=== PATIENT | male | born 1980 | race Hispanic/Latino ===

== ENCOUNTER 2016-11-25 13:09 | Inpatient (IN) | payer MEDICAID ==
[2016-11-25] MEDS ORDERED: MORPHINE IV ONE ×2 (13:48→14:42)
--- NOTE | 2016-11-25 14:06 | Emergency Department Report ---
ED Upper Extremity Inj HPI - General Chief Complaint: Shoulder Injury Stated Complaint: POSS SHOULDER RIGHT Time Seen by Provider: 11/25/16 13:26 Source: patient Mode of arrival: Ambulatory Limitations: No Limitations - History of Present Illness Initial Comments: 36-year-old blind male who fell on his right shoulder last night. Went to work today and got an x-ray at work that showed a right shoulder dislocation. Patient is a having significant pain with any movement. Complaint: Injury to:: right -: Sudden Other Extremity Injury: Shoulder: Left Other Injuries: none Handedness: right Place: other (friend's house) Improves With: immobilization Worsens With: movement of extremity Context: fall Associated Symptoms: denies: weakness, numbness - Related Data Home Medications Medication Instructions Recorded Confirmed Last Taken No Known Home Medications [No 11/22/13 11/22/13 Unknown Reported Home Medications] Allergies Allergy/AdvReac Type Severity Reaction Status Date / Time No Known Allergies Allergy Unverified 11/22/13 20:17 ED Review of Systems ROS: Stated complaint: POSS SHOULDER RIGHT Other details as noted in HPI Comment: All other systems reviewed and negative Eyes: denies: eye pain, eye discharge Cardiovascular: denies: chest pain, palpitations Endocrine: denies: excessive sweating Gastrointestinal: denies: abdominal pain, nausea Musculoskeletal: denies: back pain Neurological: denies: headache, weakness ED Past Medical Hx - Past Medical History Previous Medical History?: Yes Hx Congestive Heart Failure: No Hx Diabetes: No Hx Kidney Stones: Yes Hx Psychiatric Treatment: Yes (Depression, anxiety) Hx Asthma: No Hx COPD: No Hx HIV: No Additional medical history: Totally Blind. - Surgical History Past Surgical History?: Yes Additional Surgical History: Left shoulder surgery. Tonsilectomy. - Family History Family history: no significant - Social History Smoking Status: Never Smoker Substance Use Type: None - Medications Home Medications: Home Medications Medication Instructions Recorded Confirmed Last Taken Type No Known Home Medications [No 11/22/13 11/22/13 Unknown History Reported Home Medications] ED Physical Exam - General Limitations: No Limitations General appearance: alert, in no apparent distress - Head Head exam: Present: atraumatic, normocephalic - Neck Neck exam: Absent: tenderness, lymphadenopathy - Cardiovascular Cardiovascular Exam: Present: regular rate, normal rhythm, normal heart sounds - GI/Abdominal GI/Abdominal exam: Present: soft - Expanded Upper Extremity Exam Right Shoulder Exam: Present: tenderness, deformity, dislocation. Absent: swelling, abrasion, laceration Neuro motor exam: Present: wrist extension intact, thumb opposition intact, thumb IP flexion intact, thumb adduction intact, fingers 2-5 abduction intact - Neurological Exam Neurological exam: Present: alert, oriented X3 - Psychiatric Psychiatric exam: Present: normal affect ED Course Vital Signs 11/25/16 13:18 Temperature 97.7 F Pulse Rate 97 H Respiratory 16 Rate Blood Pressure 125/83 O2 Sat by Pulse 100 Oximetry ED Medical Decision Making - Medical Decision Making Patient with direct fall onto right shoulder with fracture dislocation of the right shoulder. Discussed case with Dr. Banks orthopedics and recommend CT shoulder with admission for operative repair tomorrow. Plan admit patient to hospitalist service. Patient placed in sling Portions of this chart were dictated with dictation software. There may be dictation errors contained within this note. Critical care attestation.: If time is entered above; I have spent that time in minutes in the direct care of this critically ill patient, excluding procedure time. ED Disposition Clinical Impression: Shoulder fracture, right, Shoulder dislocation Disposition: OP ADMIT IP TO THIS HOSP Is pt being admited?: Yes Condition: Stable
--- NOTE | 2016-11-25 14:17 | XRay Report ---
Right shoulder: Deformity, pain. There is a subcapital fracture with anteromedial and inferior displacement of the head. It is lateral fragmentation of the tuberosity. The scapula appears intact. Impression: Displaced humerus fracture.
--- NOTE | 2016-11-25 15:09 | Admit Criteria Form ---
Admission Criteria Documentation: MUSCULOSKELETAL DISEASE GRG Clinical Indications for Admission to Inpatient Care (Place 'X' for any and all applicable criteria): Hospital admission is needed for appropriate care of the patient because of 1 or more of the following: [X]I. Fracture, dislocation, or other musculoskeletal injury requiring inpatient care(medical) as indicated by 1 or more of the following(4)(5)(6)(7) [ ]a) Vertebral fracture requiring observation for instability or neurologic compromise (8) [ ]b) Compartment syndrome (proven or cannot be ruled out during observation level of care) (9) [ ]c) Limb-threatening injury [ ]d) Major injury requiring inpatient stabilization such as traction initiation or external fixation before internal fixation or closure of complex or open fracture [X]e) Major injury requiring inpatient treatment after emergency or observation level care (as appropriate) [ ]f) Severe pain requiring acute inpatient management [ ]g) Injury with suspicion of abuse or neglect (eg., child, dependent elderly) [ ]II. Newly diagnosed or suspected bone, joint, or orthopedic device infection (e.g., osteomyelitis, septic arthritis) needing 1 or more of the following(1)(2)(3) [ ]a) IV antibiotics that cannot be initiated in other than inpatient setting (e.g., patient too unstable or home infusion not available) [ ]b) Device removal or replacement [ ]c) Bone or soft tissue debridement [ ]d) Joint drainage (drain placement or repetitive aspirations) [ ]III. Severe rheumatologic disease (e.g., systemic lupus erythematosus, rheumatoid arthritis) with complications or comorbidities (Also use Optimal Recovery Care Criteria or General Recovery Criteria as appropriate on the basis of predominant condition), including 1 or more of the following( 10)(11)(12)(13) [ ]a) Severe infection (e.g., [employer] infection, sepsis) (14) [ ]b) Respiratory complications, including 1 or more of the following : [ ]i) Pleural effusion with respiratory compromise [ ]ii) Pulmonary hypertension with congestive failure [ ]iii) Respiratory failure [ ]iv) Pulmonary hemorrhage (15) [ ]c) Hematologic disease, including 1 or more of the following: [ ]i) Coagulopathy with bleeding [ ]ii) Thrombosis with hypercoagulable state [ ]iii) Thrombotic thrombocytopenic purpura [ ]d) Cerebritis with seizures, psychosis, or other severe abnormalities [ ]e) Vertebral destruction with monitoring needed for cervical myelopathy& possible respiratory compromise [ ]f) Exacerbation that requires inpatient treatment (e.g., intravenous immunosuppression) (16) [ ]g) Acute renal failure [ ]h) Cerebritis with seizures, psychosis, Altered mental status, or other neurologic abnormalities [ ]i) Pericardial effusion with tamponade [ ]j) Vertebral destruction, with monitoring needed for cervical myelopathy and possible respiratory compromise [ ]IV. Severe vasculitis with complications or comorbidities (Also use Optimal Recovery Care Criteria General Recovery Criteria as appropriate on the basis of predominant condition), including 1 or more of the following(11)(12)(17)(18)(19)(20) [ ]a) Exacerbation that requires inpatient treatment (e.g., intravenous immunosuppression) (19)(21) [ ]b) Pulmonary hemorrhage (15) [ ]c) [employer] vasculitis with seizures, psychosis, Altered mental status that is severe or persistent, or other severe abnormalities (22) [ ]d) Cerebral infarction [ ]e) Gastrointestinal ischemia [ ]f) Gangrene or threatened amputation [ ]g) Renal failure (16) [ ]h) Other significant complications of vasculitis ( eg., tissue or organ ischemia, organ dysfunction ) [ ]V. Severe myopathy as indicated by 1 or more of the following (28)(29) [ ]a) New onset of airway compromise or inability to swallow [ ]b) Respiratory deterioration with observation needed for impending respiratory failure [ ]c) Exacerbation that requires inpatient treatment (e.g., intravenous immunosuppression) [ ]. Severe crystal gout (arthropathy) indicated by 1 or more of the following (23)(24) [ ]a) Severe pain requiring acute inpatient management [ ]b) Exacerbation that requires inpatient treatment (e.g., intravenous treatment) [ ]VII.Rhabdomyolysis and 1 or more of the following (25)(26)(27) [ ]a) Acute renal failure [ ]b) Need for intravenous hydration after emergency or observation level care (as appropriate) [ ]c) Inability to maintain oral hydration [ ]d) Change in mental status [ ]e) Electrolyte abnormality that remains after emergency or observation level care (as appropriate) [ ]VIII Post amputation complication, as indicated by ANY ONE of the following [ ]a) Infection [ ]b) Dehiscence [ ]c) Myodesis failure [ ]IX. Severe pain requiring acute inpatient management due to musculoskeletal condition [ ]X. Musculoskeletal Disease and ALL of the following: [ ]a) Symptom or finding for which emergency and observation care have failed or are not considered appropriate (Use General Criteria: Observation Care as appropriate) [ ]b) Presence of ANY ONE of the following [ ]i) A General Admission Criteria [ ]ii) A Pediatric General Admission Criteria The original [facility] [employer] content created by [facility] [employer] has been revised. The portions of the content which have been revised are identified through the use of italic text or in bold, and [facility] has neither reviewed nor approved the modified material. All other unmodified content is copyright [facility] [employer]. Please see references footnoted in the original [facility] edition 2016 Admission Criteria Met: Yes
[2016-11-25 15:19] LABS: Anion Gap 22 mmol/L; BUN/Creatinine Ratio 23.33; Blood Urea Nitrogen 14 mg/dL (9-20); Calcium 8.8 mg/dL (8.4-10.2); Carbon Dioxide 22 mmol/L (22-30); Chloride 93.5 mmol/L (98-107); Glucose 121 mg/dL (75-100); Sodium 133 mmol/L (137-145)
[2016-11-25 15:44] LABS: Basophils % (Auto) 0.4 % (0.0-1.8); Eosinophils % (Auto) 0.3 % (0.0-4.3); Hematocrit 39.9 % (35.5-45.6); Hemoglobin 13.6 gm/dl (11.8-15.2); Mean Corpuscular HGB Conc 34 % (32-34); Mean Corpuscular Hemoglobin 30 pg (28-32); Mean Corpuscular Volume 87 fl (84-94); Platelet Count 360 K/mm3 (140-440); Red Blood Count 4.57 M/mm3 (3.65-5.03); Red Cell Distribution Width 13.8 % (13.2-15.2); White Blood Count 13.9 K/mm3 (4.5-11.0)
[2016-11-25 15:54] LABS: INR 1.04 (0.87-1.13)
[2016-11-25] MEDS ORDERED: TYLENOL PO PRN (16:30)
[2016-11-25] MEDS ORDERED: DULCOLAX PR PRN (16:30)
[2016-11-25] MEDS ORDERED: ZOFRAN IV PRN (16:30)
[2016-11-25] MEDS ORDERED: MILK OF MAGNESIA PO PRN (16:30)
--- NOTE | 2016-11-25 16:30 | History and Physical Report ---
History of Present Illness Date of examination: 11/25/16 Date of admission: 11/25/16 Chief complaint: rT SHOULDER PAIN AFTER FALL History of present illness: History of Present Illness 36-year-old blind male who fell on his right shoulder last night. Went to work today and got an x-ray at work that showed a right shoulder dislocation. Patient is a having significant pain with any movement. Complaint: Injury to:: right -: Sudden Other Extremity Injury: Shoulder: Left Other Injuries: none Handedness: right Place: other (friend's house) Improves With: immobilization Worsens With: movement of extremity Context: fall Associated Symptoms: denies: weakness, numbness - - Past Medical History Previous Medical History?: Yes Hx Congestive Heart Failure: No Hx Diabetes: No Hx Kidney Stones: Yes Hx Psychiatric Treatment: Yes (Depression, anxiety) Hx Asthma: No Hx COPD: No Hx HIV: No Additional medical history: Totally Blind. - Surgical History Past Surgical History?: Yes Additional Surgical History: Left shoulder surgery. Tonsilectomy. - Family History Family history: no significant - Social History Smoking Status: Never Smoker Substance Use Type: None - Medications Home Medications: Home Medications Medication Instructions Recorded Confirmed Last Taken Type No Known Home Medications [No 11/22/13 11/22/13 Unknown History Reported Home Medications] Review of Systems Stated complaint: POSS SHOULDER RIGHT Other details as noted in HPI Comment: All other systems reviewed and negative Eyes: denies: eye pain, eye discharge Cardiovascular: denies: chest pain, palpitations Endocrine: denies: excessive sweating Gastrointestinal: denies: abdominal pain, nausea Musculoskeletal: denies: back pain Neurological: denies: headache, weakness Medications and Allergies Allergies Allergy/AdvReac Type Severity Reaction Status Date / Time No Known Allergies Allergy Unverified 11/22/13 20:17 Home Medications Medication Instructions Recorded Confirmed Last Taken Type No Known Home Medications [No 11/22/13 11/25/16 Unknown History Reported Home Medications] Exam - Constitutional Vitals: Temp Pulse Resp BP Pulse Ox 98.0 F 96 H 16 107/64 98 11/25/16 14:30 11/25/16 14:30 11/25/16 15:58 11/25/16 14:30 11/25/16 15:58 General appearance: Present: no acute distress, well-nourished - EENT Eyes: Present: PERRL ENT: hearing intact, clear oral mucosa - Neck Neck: Present: supple, normal ROM - Respiratory Respiratory effort: normal Respiratory: bilateral: CTA - Cardiovascular Heart rate: 70 Rhythm: regular Heart Sounds: Present: S1 & S2. Absent: rub, click - Extremities Extremities: no ischemia, pulses intact, pulses symmetrical, No edema, abnormal (DECREASED RANGE OF MOTION AT RT SHOULDER) Peripheral Pulses: within normal limits - Abdominal General gastrointestinal: Present: soft, non-tender, non-distended, normal bowel sounds Male genitourinary: Present: normal - Integumentary Integumentary: Present: clear, warm, dry - Musculoskeletal Musculoskeletal: gait normal, strength equal bilaterally - Psychiatric Psychiatric: appropriate mood/affect, intact judgment & insight - Neurologic Neurologic: CNII-XII intact, moves all extremities Results - Labs CBC & Chem 7: 11/26/16 05:54 11/26/16 07:10 Labs: Laboratory Last Values WBC 13.9 K/mm3 (4.5-11.0) H 11/25/16 14:41 RBC 4.57 M/mm3 (3.65-5.03) 11/25/16 14:41 Hgb 13.6 gm/dl (11.8-15.2) 11/25/16 14:41 Hct 39.9 % (35.5-45.6) 11/25/16 14:41 MCV 87 fl (84-94) 11/25/16 14:41 MCH 30 pg (28-32) 11/25/16 14:41 MCHC 34 % (32-34) 11/25/16 14:41 RDW 13.8 % (13.2-15.2) 11/25/16 14:41 Plt Count 360 K/mm3 (140-440) 11/25/16 14:41 Lymph % (Auto) 16.4 % (13.4-35.0) 11/25/16 14:41 [place] % (Auto) 10.5 % (0.0-7.3) H 11/25/16 14:41 Eos % (Auto) 0.3 % (0.0-4.3) 11/25/16 14:41 Baso % (Auto) 0.4 % (0.0-1.8) 11/25/16 14:41 Lymph # 2.3 K/mm3 (1.2-5.4) 11/25/16 14:41 [place] # 1.5 K/mm3 (0.0-0.8) H 11/25/16 14:41 Eos # 0.0 K/mm3 (0.0-0.4) 11/25/16 14:41 Baso # 0.1 K/mm3 (0.0-0.1) 11/25/16 14:41 Seg Neutrophils % 72.4 % (40.0-70.0) H 11/25/16 14:41 Seg Neutrophils # 10.0 K/mm3 (1.8-7.7) H 11/25/16 14:41 PT 13.5 Sec. (12.2-14.9) 11/25/16 14:41 INR 1.04 (0.87-1.13) 11/25/16 14:41 Sodium 133 mmol/L (137-145) L 11/25/16 14:41 Potassium 4.0 mmol/L (3.6-5.0) 11/25/16 14:41 Chloride 93.5 mmol/L (98-107) L 11/25/16 14:41 Carbon Dioxide 22 mmol/L (22-30) 11/25/16 14:41 Anion Gap 22 mmol/L 11/25/16 14:41 BUN 14 mg/dL (9-20) 11/25/16 14:41 Creatinine 0.6 mg/dL (0.8-1.5) L 11/25/16 14:41 Estimated GFR > 60 ml/min 11/25/16 14:41 BUN/Creatinine Ratio 23.33 % 11/25/16 14:41 Glucose 121 mg/dL (75-100) H 11/25/16 14:41 Calcium 8.8 mg/dL (8.4-10.2) 11/25/16 14:41 - Imaging and Cardiology Imaging and Cardiology: rT sHOULDER fRACTURE AT HEAD OF HUMERUS -THROUGH AND THROUGH Assessment and Plan Advance Directives: Yes (FC) Plan of care discussed with patient/family: Yes - Patient Problems (1) Shoulder fracture, right Current Visit: Yes Status: Acute Qualifiers: Encounter type: initial encounter Fracture type: closed Fracture healing : F Qualified Code(s): S42.91XA - Fracture of right shoulder girdle, part unspecified, initial encounter for closed fracture Plan to address problem: FOR SURGERY TOMORROW.dR RIDDLE CONSULTED (2) DVT prophylaxis Current Visit: Yes Status: Acute Plan to address problem: ON LOVENOX 40 MG SQ QD
[2016-11-25] MEDS ORDERED: ATIVAN IV PRN (16:33)
--- NOTE | 2016-11-25 16:45 | Cat Scan Report ---
CT right upper extremity without contrast: Trauma, deformity, dislocation. Transverse images were obtained with coronal and sagittal 2-D reformatted images and 3-D image. The scapula is intact. The articulating surface of the humerus is displaced posterior and inferior to the glenoid fossa. The remainder of the humerus head is shattered with numerous small fragments also posterior to the glenoid. The shaft is impacting the head and likewise displaced posteriorly. Impression: Displaced humerus fractures.
[2016-11-25] MEDS: DILAUDID IV PRN ×2 (17:48→21:36)
[2016-11-25] MEDS ORDERED: XANAX PO SCH (18:00)
[2016-11-25] MEDS: PERCOCET 5/325 PO PRN (19:07)
[2016-11-25] MEDS: XANAX PO PRN (19:08)
--- NOTE | 2016-11-25 21:32 | Anesthesia Consultation ---
Anesthesia Consult and Med Hx Date of service: 11/25/16 - Airway Anesthetic Teeth Evaluation: Good ROM Head & Neck: Adequate Mental/Hyoid Distance: Adequate Mallampati Class: Class II Intubation Access Assessment: Probably Good - Pulmonary Exam CTA: Yes - Cardiac Exam Cardiac Exam: RRR - Pre-Operative Health Status ASA Pre-Surgery Classification: ASA2 Proposed Anesthetic Plan: General - Pulmonary Hx Asthma: No COPD: No Hx Pneumonia: No - Central Nervous System Hx Psychiatric Problems: Yes (depression) - Endocrine Hx Renal Disease: Yes (H/O kidney stones) Hx End Stage Renal Disease: No - Other Systems Hx Cancer: No - Additional Comments Anesthesia Medical History Comments: Pt is blind.
[2016-11-26] MEDS: XANAX PO PRN ×2 (02:29→18:57)
[2016-11-26] MEDS: DILAUDID IV PRN ×3 (02:30→21:45)
[2016-11-26] MEDS: D5NS 1,000 ML IV SCH ×2 (02:42→22:46)
[2016-11-26 06:26] LABS: Basophils % (Auto) 0.2 % (0.0-1.8); Eosinophils % (Auto) 1.3 % (0.0-4.3); Hemoglobin 12.6 gm/dl (11.8-15.2); Mean Corpuscular HGB Conc 34 % (32-34); Mean Corpuscular Hemoglobin 30 pg (28-32); Mean Corpuscular Volume 88 fl (84-94); Platelet Count 264 K/mm3 (140-440); Red Blood Count 4.23 M/mm3 (3.65-5.03); Red Cell Distribution Width 13.8 % (13.2-15.2)
[2016-11-26 06:37] LABS: Alanine Aminotransferase 36 units/L (7-56); Albumin 4.6 g/dL (3.9-5); Albumin/Globulin Ratio 1.4 %; Alkaline Phosphatase 73 units/L (35-129); Anion Gap 27 mmol/L; BUN/Creatinine Ratio 16.25; Blood Urea Nitrogen 13 mg/dL (9-20); Calcium 9.8 mg/dL (8.4-10.2); Carbon Dioxide 26 mmol/L (22-30); Chloride 117.3 mmol/L (98-107); Glucose 130 mg/dL (75-100); Potassium 5.3 mmol/L (3.6-5.0)
[2016-11-26 06:49] LABS: Sodium 166 mmol/L (137-145)
[2016-11-26 07:49] LABS: Anion Gap 15 mmol/L; Blood Urea Nitrogen 9 mg/dL (9-20); Calcium 8.2 mg/dL (8.4-10.2); Carbon Dioxide 29 mmol/L (22-30); Chloride 95.4 mmol/L (98-107); Glucose 110 mg/dL (75-100); Sodium 135 mmol/L (137-145)
[2016-11-26] MEDS ORDERED: NACL 0.9% 1000 ML 1,000 ML ONE ×2 (11:13→12:28)
--- NOTE | 2016-11-26 11:22 | Consultation ---
History of Present Illness - [facility] Consult date: 11/26/16 Consult reason: fracture History of present illness: 36-year-old male who complained of right shoulder pain after a fall 2 days ago, the patient is legally blind as he tripped over something landing onto his right upper extremity patient did not seek immediate medical attention however over the next day or so the pain got increasingly more severe and subsequently he presented to the emergency room x-rays were taken revealing a displaced fracture dislocation of the right proximal humerus no other complaints noted Medications and Allergies Allergies Allergy/AdvReac Type Severity Reaction Status Date / Time No Known Allergies Allergy Unverified 11/22/13 20:17 Home Medications Medication Instructions Recorded Confirmed Last Taken Type ALPRAZolam [Xanax TAB] 2 mg PO TID PRN #40 tablet 11/26/16 Unknown Rx oxyCODONE /ACETAMINOPHEN [Percocet 1 tab PO Q6HR PRN #40 tablet 11/26/16 Unknown Rx 5/325 mg] Active Meds: Active Medications Acetaminophen (Tylenol) 650 mg PO Q4H PRN PRN Reason: Pain MILD(1-3)/Fever >100.5/DEAL Alprazolam (Xanax) 1 mg PO Q6H PRN PRN Reason: Anxiety Last Admin: 11/26/16 02:29 Dose: 1 mg Bisacodyl (Dulcolax) 10 mg MT QDAY PRN PRN Reason: Constipation unrelieved by MOM Hydromorphone HCl (Dilaudid) 1 mg IV Q3H PRN PRN Reason: Pain , Severe (7-10) Last Admin: 11/26/16 08:01 Dose: 1 mg Dextrose/Sodium Chloride (D5ns) 1,000 mls @ 75 mls/hr IV DIRECT RAMON Last Admin: 11/26/16 02:42 Dose: 75 mls/hr Magnesium Hydroxide (Milk Of Magnesia) 30 ml PO Q4H PRN PRN Reason: Constipation Ondansetron HCl (Zofran) 4 mg IV Q3H PRN PRN Reason: N/V unrelieved by Reglan Oxycodone/Acetaminophen (Percocet 5/325) 1 tab PO Q6H PRN PRN Reason: Pain, Moderate (4-6) Last Admin: 11/25/16 19:07 Dose: 1 tab Physical Examination - Physical exam Narrative exam: On physical exam significant findings related to the right upper extremity. He was noted to have moderate swelling he was tender approximately skin is intact active range of motion is severely restricted due to pain distal neurovascular status is intact Plain x-rays and CT scans of the right shoulder reveal a four-part right proximal humerus fracture with displacement Eyes: PERRL, irregular pupil (patient has bilateral corneal opacities) ENT: Positive: clear oral mucosa Respiratory effort: normal Respiratory: bilateral: CTA Rhythm: regular Heart Sounds: Positive: S1 & S2 General gastrointestinal: Positive: soft, non-tender, non-distended, normal bowel sounds Integumentary: clear, warm, dry Neurologic: Positive: CNII-XII intact, moves all extremities, gait normal. Negative: focal deficits - Cervical Spine Neck pain: none Tenderness with palpation: none Full ROM: yes ROM: flexion: normal ROM: extension: normal ROM: rotation right: normal ROM: rotation left: normal ROM: lateral flexion right: normal ROM: lateral flexion left: normal - Lumbar Spine Back pain: none Tenderness with palpation: none Appearance: normal Full ROM: yes ROM: flexion: normal ROM: extension: normal ROM: rotation right: normal ROM: rotation left: normal ROM: lateral flexion right: normal ROM: lateral flexion left: normal Assessment and Plan Assessment Four-part proximal humerus fracture with displacement Recommendations He will require closed possible open reduction with insertion of intramedullary nail right proximal humerus
--- NOTE | 2016-11-26 11:25 | Anesthesia Day of Surgery ---
Anesthesia Day of Surgery - Day of Surgery Patient Examined: Yes Patient H&P Reviewed: Yes Patient is NPO: Yes
[2016-11-26] MEDS ORDERED: DILAUDID ONE (11:37)
[2016-11-26] MEDS ORDERED: XYLOCAINE MPF 2% ONE (11:37)
[2016-11-26] MEDS ORDERED: DIPRIVAN 10 MG/ML IV ONE (11:37)
[2016-11-26] MEDS ORDERED: ANCEF ONE (12:08)
[2016-11-26] MEDS ORDERED: ZOFRAN ONE (12:56)
[2016-11-26] MEDS ORDERED: DECADRON ONE (12:56)
[2016-11-26] MEDS ORDERED: NEO SYNEPHRINE/NS Syringe(OR USE) IV ONE (13:00)
--- NOTE | 2016-11-26 13:29 | Progress Note ---
Assessment and Plan Shoulder fracture, right DR RIDDLE CONSULTED s/p Attempted closed reduction followed by open reduction and insertion of intramedullary nail right proximal humerus WIN placed on as needed ativan Legally blind - supportive care DVT prophylaxis ON LOVENOX 40 MG SQ QD Subjective Date of service: 11/26/16 Interval history: Patient seen and examined. Medical records and medication list reviewed. No acute event overnight noted by the RN. Patient will be taken for the surgery today Discussed plan of care at bedside with patient. Objective - Exam Narrative Exam: GENERAL: well-developed WM lying on bed appeared to be in no discomfort. HEENT: Normocephalic. Atraumatic. legally blind. Patient has moist mucous membranes. NECK: Supple. Trachea midline. CHEST/LUNGS: Clear to auscultated bilaterally, breathing nonlabored. No wheezes crackles or rhonchi. HEART/CARDIOVASCULAR: Regular in rate and rhythm. S1 and S2 positive. ABDOMEN: Abdomen is soft, nontender. Patient has normal bowel sounds. SKIN: There is no rash. Warm and dry. NEURO: No focal motor deficit. Follows command. MUSCULOSKELETAL: rt shoulder with surgical dressing. EXTRIMITY: No edema, no cyanosis or clubbing. PSYCH: Cooperative. - Constitutional Vitals: Vital Signs - 12hr 11/26/16 05:12 Temperature 97.9 F Pulse Rate 78 Respiratory 18 Rate Blood Pressure 112/70 O2 Sat by Pulse 100 Oximetry - Labs CBC & Chem 7: 11/26/16 05:54 11/26/16 07:10 Labs: Abnormal lab results 11/26/16 11/26/16 11/26/16 Range/Units 05:54 05:54 07:10 [facility] % (Auto) 12.0 H (0.0-7.3) % [facility] # 1.1 H (0.0-0.8) K/mm3 Sodium 166 H* D 135 L D (137-145) mmol/L Potassium 5.3 H D (3.6-5.0) mmol/L Chloride 117.3 H 95.4 L (98-107) mmol/L Creatinine 0.6 L (0.8-1.5) mg/dL Glucose 130 H 110 H (75-100) mg/dL Calcium 8.2 L D (8.4-10.2) mg/dL
[2016-11-26] MEDS ORDERED: TORADOL IM ONE (14:02)
[2016-11-26] MEDS ORDERED: MARCAINE-EPI/PF 0.5%-1:200,000 INFILTRATI ONE ×2 (14:05→15:00)
[2016-11-26] MEDS ORDERED: ASTRAMORPH PF 10MG/10ML IV ONE (14:12)
[2016-11-26] MEDS ORDERED: MORPHINE ONE (14:26)
[2016-11-26] MEDS ORDERED: NACL 0.9% 50 ML ONE (14:27)
[2016-11-26] MEDS ORDERED: NACL 0.9% IR ONE (14:43)
[2016-11-26] MEDS ORDERED: MARCAINE-EPI 0.5%-1:200,000 INFILTRATI ONE (14:43)
[2016-11-26] MEDS ORDERED: TORADOL IV ONE (14:43)
[2016-11-26] MEDS ORDERED: NACL INFILTRATI ONE (14:43)
--- NOTE | 2016-11-26 14:55 | Procedure Note ---
Date of procedure: 11/26/16 Pre-op diagnosis: displaced right 3 part proximal humerus fracture Post-op diagnosis: same Procedure: Procedure Attempted closed reduction followed by open reduction and insertion of intramedullary nail right proximal humerus Indications This 36-year-old male who fell 2 days prior to admission sustaining a three- part fracture dislocation right shoulder Procedure The patient was brought to the OR placed in the OR table in supine position following induction and intubation by anesthesia the patient was placed in the beachchair position next the right shoulder and arm were prepped and draped in the usual sterile manner. A timeout procedure was done to identify the patient and the correct operative site, using C-arm fluoroscopy and incision was made along the anterior border of the distal clavicle is taken down through skin subcutaneous the deltoid fascia was incised as well as the rotator cuff tendon this brought us down to the fracture site the patient was noted to have a fracture involving the articular surface as well as fracture of the greater tuberosity and shaft attempts at a closed reduction were performed without success and therefore the incision was extended distally Using gentle manipulation the humeral head fragment was disengaged from the anterior aspect of the glenoid and gently reduced into position is normal position K wires were used to temporarily fix this fragment. A guidewire was inserted down the proximal medullary canal across the fracture site into the distal fragment a call was used to enlarged the entry portal A 11 mm Synthes multi lock proximal humeral nail was inserted in an antegrade fashion. This was then followed by the 4.5 multi lock screws measuring 46 mm 42 and 40 mm using the outrigger to distal locking screws were also inserted again C-arm was used to navigate insertion of screws the arm and shoulder was taken through range of motion and was found to be stable and reduced within the glenohumeral joint The wound was copiously irrigated with saline solution this is followed by injection of a postoperative pain cocktail with Toradol and morphine saline and Marcaine after next the rotator cuff tendon was repaired followed by closure of the deltoid fascia and subcutaneous tissues and skin routine postoperative dressings were applied the patient tolerated the procedure there were no complications he was extubated and was taken to postanesthesia recovery. Anesthesia: GETA Surgeon: NICHELLE RIDDLE (Alexis Lennon 1st general office assistant) Estimated blood loss: 50-100ml Condition: stable Disposition: PACU
[2016-11-26] MEDS ORDERED: DILAUDID IV PRN (14:59)
--- NOTE | 2016-11-26 14:59 | Post Anesthesia Evaluation ---
- Post Anesthesia Evaluation Patient Participated: Yes Airway Patent: Yes Stable Respiratory Function: Yes Nausea/Vomiting: No Temp > 96.8F: Yes Pain Manageable: Yes Adequeate Hydration: Yes Anesthesia Complications: No
[2016-11-26] MEDS ORDERED: SODIUM CHLORIDE FLUSH SYRINGE 10 ML IV NR (15:00)
[2016-11-26] MEDS ORDERED: TORADOL IM NR (15:00)
[2016-11-26] MEDS ORDERED: MORPHINE IM ONE (15:00)
[2016-11-26] MEDS ORDERED: DEMEROL ONE (15:19)
[2016-11-27] MEDS: DILAUDID IV PRN (08:48)
--- NOTE | 2016-11-27 09:26 | XRay Report ---
Shoulder 2 views: History: Right humeral fracture and dislocation. Findings: There is anterior dislocation noted of the humeral head in relation to glenoid. The humeral head is elmer- inferior to the glenoid. There is fracture noted of the greater and lesser tuberosity. Impression: Findings as detailed above.
--- NOTE | 2016-11-27 09:28 | XRay Report ---
Right shoulder 2 views: History: Intramedullary nail and mylene right humerus. Findings: There is internal fixation noted of fracture neck right humerus with intramedullary mylene through neck and diaphysis with metallic screws. The humeral head alignment appears normal and glenoid. Impression: Stable fixation as detailed above.
--- NOTE | 2016-11-27 11:41 | Discharge Summary ---
Providers - Providers Date of Admission: 11/25/16 16:30 Date of discharge: 11/27/16 Attending physician: JORDAN ANDUJAR 11/25/16 16:38 Consult to Physician [CONS] Routine Consulting Provider: NICHELLE ADAN Reason For Exam: rt Humerus Fx Place consult to:: dr. adan Notified:: message Phone number called:: [phone] Was contact made?: No Time called:: 08:43 Primary care physician: ORDER TRACER Hospitalization Condition: Stable Hospital course: Discharge diagnosis and management: Shoulder fracture, right DR ADAN CONSULTED s/p Attempted closed reduction followed by open reduction and insertion of intramedullary nail right proximal humerus WIN placed on as needed ativan d/c with xanax his home dose Legally blind - supportive care Hyponatremia - improved with IV fluid DVT prophylaxis placed ON LOVENOX 40 MG SQ QD Disposition: DC/TX-06 HOME UNDER HOME [facility] Time spent for discharge: 32 minutes Core Measure Documentation - Palliative Care Palliative Care/ Comfort Measures: Not Applicable - Core Measures Any of the following diagnoses?: none Exam - Physical Exam Narrative exam: GENERAL: well-developed WM lying on bed appeared to be in no discomfort. HEENT: Normocephalic. Atraumatic. legally blind. Patient has moist mucous membranes. NECK: Supple. Trachea midline. CHEST/LUNGS: Clear to auscultated bilaterally, breathing nonlabored. No wheezes crackles or rhonchi. HEART/CARDIOVASCULAR: Regular in rate and rhythm. S1 and S2 positive. ABDOMEN: Abdomen is soft, nontender. Patient has normal bowel sounds. SKIN: There is no rash. Warm and dry. NEURO: No focal motor deficit. Follows command. MUSCULOSKELETAL: rt shoulder with surgical dressing. EXTRIMITY: No edema, no cyanosis or clubbing. PSYCH: Cooperative. - Constitutional Vitals: Temp Pulse Resp BP Pulse Ox 97.7 F 89 18 91/49 98 11/27/16 04:13 11/27/16 04:13 11/27/16 04:13 11/27/16 04:13 11/27/16 04:13 Plan Activity: fall precautions Weight Bearing Status: Non-Weight Bearing Diet: regular Follow up with: PRIMARY CARE, [Primary Care Provider] - 3-5 Days Prescriptions: ALPRAZolam [Xanax TAB] 2 mg PO TID PRN #40 tablet PRN Reason: Anxiety oxyCODONE /ACETAMINOPHEN [Percocet 5/325 mg] 1 tab PO Q6HR PRN #40 tablet PRN Reason: Pain
[2016-11-27] MEDS: PERCOCET 5/325 PO PRN (14:51)
[2016-11-27 15:10] VITALS: BP 106/67
== END 2016-11-27 16:15 | disposition home health service (06) | DRG 493 ==
LOC: ED 13:09 → 3A 16:30
PROVIDERS: ADMIT Internal Medicine; ATTEND Internal Medicine
PROC: 0PSF06Z Reposition Right Humeral Shaft with Intramedullary Internal Fixation Device, Open Approach (ICD-10-PCS; principal; 2016-11-26)
DX: S42.201A Unspecified fracture of upper end of right humerus, initial encounter for closed fracture (principal); E87.1 Hypo-osmolality and hyponatremia; H54.8 Legal blindness, as defined in USA; F32.9 Major depressive disorder, single episode, unspecified; F41.9 Anxiety disorder, unspecified; W19.XXXA Unspecified fall, initial encounter; Z87.442 Personal history of urinary calculi; Y93.89 Activity, other specified; Y92.89 Other specified places as the place of occurrence of the external cause
CPT/HCPCS: 36415; 80048; 80053; 85025; 85610; 96374; C1713; C1769; J0690; J1100; J1170; J1885; J2175; J2270; J2274; J2370; J2405; J2704; J7030; J7042

== ENCOUNTER 2016-12-31 11:06 | Emergency (ER) | payer MEDICAID ==
[2016-12-31 11:21] VITALS: BP 124/80
--- NOTE | 2016-12-31 12:03 | Emergency Department Report ---
ED General Adult HPI - General Chief complaint: Medical Clearance Stated complaint: REFILL ON ANXIETY MEDS Time Seen by Provider: 12/31/16 12:02 Source: patient, family Mode of arrival: Ambulatory Limitations: Physical Limitation - History of Present Illness -: Gradual Associated Symptoms: denies other symptoms Treatments Prior to Arrival: none - Related Data Previous Rx's Medication Instructions Recorded Last Taken Type ALPRAZolam [Xanax TAB] 2 mg PO TID PRN #40 tablet 11/26/16 Unknown Rx oxyCODONE /ACETAMINOPHEN [Percocet 1 tab PO Q6HR PRN #40 tablet 11/26/16 Unknown Rx 5/325 mg] ALPRAZolam [Xanax] 1 mg PO DAILY PRN #5 tablet 12/31/16 Unknown Rx Allergies Allergy/AdvReac Type Severity Reaction Status Date / Time No Known Allergies Allergy Unverified 11/22/13 20:17 ED Review of Systems ROS: Stated complaint: REFILL ON ANXIETY MEDS Other details as noted in HPI Comment: Unobtainable due to pts medical conditions Constitutional: no symptoms reported, see HPI. denies: chills, fever Eyes: as per HPI. denies: eye pain ENT: as per HPI. denies: ear pain, throat pain Respiratory: no symptoms reported, see HPI. denies: cough, orthopnea Cardiovascular: as per HPI. denies: chest pain, palpitations, dyspnea on exertion, orthopnea Endocrine: no symptoms reported, see HPI. denies: excessive sweating, flushing , intolerance to cold, intolerance to heat Gastrointestinal: as per HPI. denies: abdominal pain, nausea, vomiting Genitourinary: as per HPI. denies: urgency, dysuria Musculoskeletal: as per HPI. denies: back pain Skin: as per HPI. denies: rash, lesions Neurological: as per HPI. denies: headache, weakness Psychiatric: as per HPI. denies: anxiety, depression Hematological/Lymphatic: as per HPI. denies: easy bleeding ED Past Medical Hx - Past Medical History Previous Medical History?: Yes Hx Congestive Heart Failure: No Hx Diabetes: No Hx Renal Disease: Yes (H/O kidney stones) Hx Kidney Stones: Yes Hx Psychiatric Treatment: Yes (Depression, anxiety) Hx Asthma: No Hx COPD: No Hx HIV: No Additional medical history: Totally Blind. - Surgical History Past Surgical History?: Yes Additional Surgical History: Left shoulder surgery. Tonsilectomy. - Social History Smoking Status: Never Smoker Substance Use Type: Prescribed - Medications Home Medications: Home Medications Medication Instructions Recorded Confirmed Last Taken Type ALPRAZolam [Xanax TAB] 2 mg PO TID PRN #40 tablet 11/26/16 Unknown Rx oxyCODONE /ACETAMINOPHEN [Percocet 1 tab PO Q6HR PRN #40 tablet 11/26/16 Unknown Rx 5/325 mg] ALPRAZolam [Xanax] 1 mg PO DAILY PRN #5 tablet 12/31/16 Unknown Rx ED Physical Exam - General Limitations: Physical Limitation, Other (BLIND) General appearance: alert, in no apparent distress - ENT ENT exam: Present: mucous membranes moist - Neck Neck exam: Present: normal inspection - Respiratory Respiratory exam: Present: normal lung sounds bilaterally - Cardiovascular Cardiovascular Exam: Present: regular rate - GI/Abdominal GI/Abdominal exam: Present: soft - Rectal Rectal exam: Present: deferred - Extremities Exam Extremities exam: Present: normal inspection - Back Exam Back exam: Present: normal inspection - Psychiatric Psychiatric exam: Present: normal affect, normal mood - Skin Skin exam: Present: warm, dry ED Course Vital Signs 12/31/16 11:16 Temperature 98.1 F Pulse Rate 86 Respiratory 20 Rate Blood Pressure 124/80 O2 Sat by Pulse 98 Oximetry - Reevaluation(s) Reevaluation #1: 12/31/16 PMH ANXIETY RECENT SURGERY- DC ON XANAX AND PERC NOT ON PERC NOW NO PAIN DEBILITY VSS NAD NO WITHDRAWAL S/S OUT OF RX X 1 D TO ER OUT OF HIS XANAX DISCUSSED W DR ESTRADA- LIMITED NO SMALLER DOSE PT HERE W FATHER DISCUSSED WHY WE CAN NOT REFILL- CONTROLLED AND HX OD HE WAS GIVEN OUTPT FU INFO ED Medical Decision Making - Medical Decision Making DISCUSSED W DR ESTRADA Critical care attestation.: If time is entered above; I have spent that time in minutes in the direct care of this critically ill patient, excluding procedure time. ED Disposition Clinical Impression: Medication refill Disposition: DC-01 TO HOME OR SELFCARE Is pt being admited?: No Does the pt Need Aspirin: No Condition: Stable Instructions: Anxiety (ED) Additional Instructions: follow up with PCP as recommended ER can not give you ongoing medications Prescriptions: ALPRAZolam [Xanax] 1 mg PO DAILY PRN #5 tablet PRN Reason: Anxiety Referrals: ANNE MARIE TREJO MD [Staff Physician] - 3-5 Days [facility] [Outside] - 3-[address] [facility] [Outside] - 3-5 Days [facility] [Outside] - 3-5 Days Time of Disposition: 12:03
== END 2016-12-31 12:47 | disposition home or self-care (01) ==
LOC: ED 11:06
DX: Z76.0 Encounter for issue of repeat prescription (principal)
CPT/HCPCS: 99282